=== PATIENT | male | born 1995 | race Caucasian/White ===

== ENCOUNTER 2018-01-13 06:24 | Day surgery (SDC) | payer BC ==
[2018-01-06 11:54] LABS: Absolute Lymphocytes (CBC) 1.9 K/uL (0.7-4.9); Absolute Monocytes 0.5 K/uL (0.1-1.3); Absolute Neutrophil 3.6 K/uL (1.8-8.0); Basophils % 0.5 % (0-1.3); Eosinophils % 1.4 % (0-4.4); Hematocrit 44.9 % (39.6-49.0); Lymphocytes % 31.1 % (15.3-44.8); MCH 30.4 pg (27.0-35.0); MCV 88.7 fL (80-100); MPV 10.7 fL (7.6-11.3); Monocytes % 7.5 % (3.3-12.3); RBC Red Blood Cell Count 5.06 M/uL (4.33-5.43)
[2018-01-06 12:04] LABS: Protime INR 1.07
[2018-01-06 12:10] LABS: BUN Blood Urea Nitrogen 13 mg/dL (7-18); Bicarbonate 32 mmol/L (21-32); Glucose Level 87 mg/dL (74-106); Potassium 4.5 mmol/L (3.5-5.1); Sodium Level 141 mmol/L (136-145)
[2018-01-13] MEDS ORDERED: Ringers Lactate 1,000 ML IV ONE ×2 (06:57→10:16)
[2018-01-13] MEDS ORDERED: CEFAZOLIN/SWI 1gm 1 GM/10 ML SYR ONE (06:57)
[2018-01-13] MEDS ORDERED: EPINEPHRINE/PF 1 MG/ML AMP ONE (07:00)
[2018-01-13] MEDS ORDERED: DEXAMETHASONE 4 MG/ML VIAL ONE (07:20)
[2018-01-13] MEDS ORDERED: ROPLVACAINE HCL 40 ML ONE (07:20)
[2018-01-13] MEDS ORDERED: PROPOFOL 200 MG/20 ML VIAL IV ONE (07:41)
[2018-01-13] MEDS ORDERED: FENTANYL CITR 100 MCG/2 ML ONE ×2 (07:41→09:38)
[2018-01-13] MEDS ORDERED: LIDOCAINE 2% MPF 5 ML VIAL ONE (07:41)
[2018-01-13] MEDS ORDERED: MIDAZOLAM HCL 2 MG/2 ML INJ ONE (07:41)
[2018-01-13] MEDS ORDERED: HYDRALAZINE HCL 20 MG/ML VIAL ONE (08:23)
[2018-01-13] MEDS ORDERED: KETOROLAC 30 MG/ML INJ ONE (10:10)
--- NOTE | 2018-01-13 10:58 | P.BOP ---
Preoperative diagnosis: left shoulder posterior labrum tear with labral cyst Postoperative diagnosis: same Primary procedure: left shoulder arthroscopic posterior labrum repair Secondary procedure: left shoulder arthroscopic posterior labral cyst decompression Youth Manager: NONE,NONE Estimated blood loss: 20 cc Specimen: none Findings: see dictation Anesthesia: General Complications: None Implants: 4- 2.9 mm Arthrex pushlocks with suture tapes Fluids & blood products: per anesthesia Transferred to: Recovery Room Condition: Good
[2018-01-13] MEDS ORDERED: HYDROCODONE/APAP 7.5/325 MG TAB ONE (13:01)
--- NOTE | 2018-01-13 16:44 | RAD REPORT ---
EXAM DESCRIPTION: RAD - Shoulder Left 2 View - 01/13/2018 12:13 pm CLINICAL HISTORY: Left shoulder surgery FINDINGS: Postoperative x-rays of the left shoulder were obtained. No fracture or dislocation is seen. No abnormality is displayed
--- NOTE | 2018-01-13 23:28 | OP ---
Date of Procedure: 01/13/2018 Surgeon: Randell Tovar MD Preoperative Diagnosis: 1.Left shoulder posterior labral tear. 2.Left shoulder posterior labral cyst. Procedure Performed: 1.Left shoulder arthroscopic posterior labral repair. 2.Left shoulder arthroscopic posterior labral cyst decompression. Anesthesia: General endotracheal. Fluids: Per Anesthesia. Estimated Blood Loss: 20 cc. Complications: None. Implants: Four 2.9 mm Arthrex PushLocks and 4 SutureTapes. Indication For Procedure: Sudhakar is a 22-year-old male who presented to my clinic with signs, sympto ms, and MRI findings consistent with posterior labral tear and posterior labral cyst. I discussed wi th the patient at length risks and benefits associated with operative and nonoperative treatment. He expressed understanding and elected to proceed with operative treatment. Description Of Procedure: After informed consent was obtained, the patient was identified in the pre operative holding area. The left upper extremity was marked. The patient was then taken to PACU and underwent an interscalene block performed by Anesthesia in the PACU. He was then transferred to ope rating room, transferred to the operating table in supine fashion, placed under general endotracheal anesthesia. He was then placed in the right lateral decubitus position with an axillary roll placed and his extremities well padded. Using the sánchez bag to hold the lateral position, he was placed into position. The left upper extremity was then examined. The patient did not have any andrew dislocati on of his glenohumeral joint with posterior stress, but did have full range of motion. The left uppe r extremity was then prepped and draped in usual sterile fashion. A time-out was initiated. The cor rect patient and procedure were confirmed and identified. The patient did receive his preoperative p rophylactic antibiotics. A lateral shoulder positioner was then used to put gentle traction on the l eft upper extremity. First, a standard posterior portal was created by first placing a spinal needle and then injecting the joint with 30 cc of normal saline to distend the capsule and posterior portal was then created followed by an anterior superolateral portal. Cannula was placed and diagnostic ar throscopy was performed. The patient was noted to have an intact anterior labrum as well as superior labrum. There was an intact supraspinatus as well as subscapularis. No loose bodies were found on the axillary pouch. The biceps tendon was found to be intact with no significant tenosynovitis. The re was noted to be a labral tear from approximately the 6 o'clock position to approximately the 9 o'c lock position on the posterior labrum. This was elevated off the glenoid using an elevator. The alex vator was then placed alongside the glenoid to help to decompress the posterior labral cyst which was noted. The superior labrum was again probed and there was no significant elevation of the superior labrum off the glenoid. At that point, a repair of the posterior labrum was performed. A second ant erior and second posterior portals were created to aid with suture passage. A suture passer was firs t placed at the inferior position at approximately the 7 o'clock position. Once the Lasso was passed , a SutureTape was then placed through the Lasso and using a simple suture configuration, there was n oted to be a good bumper formed when there was some light tension placed on the SutureTape. An ancho r was then placed by first drilling the glenoid and placing the drill sleeve on the glenoid face and 2.9 mm PushLock was placed. At approximately the 7 o'clock position, there was good elevation of the labrum on the glenoid. A Lasso was then used to further repair the posterior labrum at approximatel y the 8 o'clock and 10 o'clock position and SutureLasso was placed through the labral tissue followed by passage of the SutureTape and placement of a 2.9 mm PushLock again at the 8 o'clock and 10 o'cloc k position. There was good elevation of the posterior labrum onto the glenoid face and a bumper was made. There was also some tear noted at the inferior aspect of the labrum between the 5 and 6 o'cloc k position and via the anterior portal, a 4th anchor was placed at approximately the 5 o'clock positi on. After this was completed, there was a good bumper that was formed and there was a good repair of the labrum onto the glenoid face. The instruments were then removed and wounds were then approximat ed using a 2-0 Vicryl. He did have a small bleeder anteriorly and that was tied off with a silk tie and good hemostasis was achieved and the portals were approximated using 3-0 Monocryl. Sterile dress ings were applied. The patient was placed in a shoulder immobilizer, awakened, and transferred to [facility] in stable condition. Postoperative Plan: The patient will follow in my clinic next week for wound check, and he will begi n physical therapy per posterior labral repair protocol at approximately 2 weeks' postoperative. GEOVANY Voice ID: [id number] Report ID: [id number]
== END 2018-01-13 13:50 | disposition home or self-care (01) ==
LOC: OR 06:24
PROVIDERS: ATTEND Orthopaedic Surgery Sports Medicine
PROC: 0RQK4ZZ Repair Left Shoulder Joint, Percutaneous Endoscopic Approach (ICD-10-PCS; 2018-01-13)
PROC: 0MM24ZZ Reattachment of Left Shoulder Bursa and Ligament, Percutaneous Endoscopic Approach (ICD-10-PCS; principal; 2018-01-13 07:30)
DX: S43.432A Superior glenoid labrum lesion of left shoulder, initial encounter (principal); F90.9 Attention-deficit hyperactivity disorder, unspecified type
CPT/HCPCS: 36415; 80048; 85025; 85610; 85730; J0171; J0360; J0690; J2250; J2795; J3010